=== PATIENT | female | born 1990 | race Caucasian/White ===

== ENCOUNTER → 2020-10-06 | Outpatient (CLI) | payer OTHER ==
[2020-10-06 14:33] LABS: FREE T4 1.25 ng/dl (0.76-1.46); THYROID STIM HORMONE (HS) 0.458 uIU/ml (0.358-4.75)
== END | disposition home or self-care (01) ==
LOC: LAB 12:24
PROVIDERS: ATTEND Internal Medicine
DX: E89.0 Postprocedural hypothyroidism (principal)

== ENCOUNTER → 2020-10-21 | Outpatient (CLI) | payer OTHER | END | disposition home or self-care (01) | LOC: US 01:15 | PROVIDERS: ATTEND Otolaryngology Plastic Surgery within the Head & Neck | DX: C73 Malignant neoplasm of thyroid gland (principal) ==

== ENCOUNTER → 2021-03-10 | Outpatient (CLI) | payer OTHER | END | disposition home or self-care (01) | LOC: LAB 03-05 00:13 | PROVIDERS: ATTEND Internal Medicine Endocrinology, Diabetes & Metabolism | DX: E89.0 Postprocedural hypothyroidism (principal); Z85.850 Personal history of malignant neoplasm of thyroid ==

== ENCOUNTER → 2021-05-28 | Outpatient (CLI) | payer OTHER ==
[2021-05-28 08:53] LABS: BASO % 0.5 % (0.0-1.0); EOS # 0.2 10*3/uL (0.0-0.4); EOS % 3.1 % (1.0-4.0); HEMATOCRIT 42.7 % (37.0-47.0); LYMPH # 1.8 10*3/uL (1.3-4.4); LYMPH % 31.3 % (27.0-41.0); MEAN CELL VOLUME 90.5 fl (81.0-99.0); MEAN CORPUSCULAR HGB 30.5 pg (27.0-31.0); MEAN CORPUSCULAR HGB CONC 33.7 g/dl (33.0-37.0); MONO # 0.5 10*3/uL (0.1-1.0); MONO % 7.7 % (3.0-9.0); NEUT # 3.3 10*3/uL (2.3-7.9); NEUT % 57.1 % (47.0-73.0); PLATELET COUNT AUTOMATED 239 10*3/uL (130-400); RED BLOOD COUNT 4.72 10*6/uL (4.10-5.10); RED CELL DISTRI WIDTH 11.8 % (0-14.5); WHITE BLOOD COUNT 5.9 10*3/uL (4.8-10.8)
[2021-05-28 09:21] LABS: ALBUMIN 3.8 gm/dl (3.1-4.5); ALKALINE PHOSPHATASE 53 U/L (45-117); BUN 11 mg/dl (7-24); CHLORIDE 106 mmol/L (98-107); CHOLESTEROL 146 mg/dL (<200); CREATININE 0.86 mg/dL (0.55-1.02); LDL CHOLESTEROL 80 mg/dL (9-159); POTASSIUM 4.2 mmol/L (3.5-5.1); SGOT/AST 23 IU/L (3-35); SGPT/ALT 19 U/L (12-78); SODIUM 140 mmol/L (136-145); TRIGLYCERIDES 56 mg/dl (<150)
[2021-05-28 09:28] LABS: THYROID STIM HORMONE (HS) 0.052 uIU/ml (0.358-4.75)
== END | disposition home or self-care (01) ==
LOC: LAB 08:35
PROVIDERS: ATTEND Family Medicine
DX: Z00.00 Encounter for general adult medical examination without abnormal findings (principal); E55.9 Vitamin D deficiency, unspecified; Z85.850 Personal history of malignant neoplasm of thyroid

== ENCOUNTER → 2021-06-04 | Outpatient (CLI) | payer OTHER ==
[2021-06-04 09:04] LABS: BUN 15 mg/dl (7-24); CHLORIDE 110 mmol/L (98-107); CREATININE 0.95 mg/dL (0.55-1.02); POTASSIUM 4.2 mmol/L (3.5-5.1); SODIUM 141 mmol/L (136-145)
== END | disposition home or self-care (01) ==
LOC: LAB 08:24
PROVIDERS: ATTEND Nurse Practitioner Family
DX: Z00.01 Encounter for general adult medical examination with abnormal findings (principal); B37.3 Candidiasis of vulva and vagina

== ENCOUNTER → 2021-07-16 | Outpatient (CLI) | payer OTHER ==
[2021-07-16 15:12] LABS: FREE T4 1.36 ng/dl (0.76-1.46)
[2021-07-16 15:17] LABS: THYROID STIM HORMONE (HS) 0.166 uIU/ml (0.358-4.75)
== END | disposition home or self-care (01) ==
LOC: LAB 14:37
PROVIDERS: ATTEND Internal Medicine Endocrinology, Diabetes & Metabolism
DX: E89.0 Postprocedural hypothyroidism (principal)

== ENCOUNTER → 2021-07-29 | Outpatient (CLI) | payer OTHER | END | disposition home or self-care (01) | LOC: CARD 00:30 | PROVIDERS: ATTEND Physician Assistant | DX: Z51.81 Encounter for therapeutic drug level monitoring (principal) ==

== ENCOUNTER → 2021-09-14 | Outpatient (CLI) | payer OTHER ==
[2021-09-14 13:31] LABS: FREE T4 1.47 ng/dl (0.76-1.46)
[2021-09-14 13:35] LABS: THYROID STIM HORMONE (HS) 0.055 uIU/ml (0.358-4.75)
== END | disposition home or self-care (01) ==
LOC: LAB 01:27
PROVIDERS: ATTEND Otolaryngology Plastic Surgery within the Head & Neck
DX: E55.9 Vitamin D deficiency, unspecified (principal)

== ENCOUNTER → 2021-10-06 | Outpatient (CLI) | payer OTHER | END | disposition home or self-care (01) | LOC: LAB 01:18 → US 16:00 → LAB 16:00 | PROVIDERS: ATTEND Otolaryngology Plastic Surgery within the Head & Neck | DX: C73 Malignant neoplasm of thyroid gland (principal) ==

== ENCOUNTER → 2021-10-18 | Outpatient (CLI) | payer OTHER | END | disposition home or self-care (01) | LOC: LAB 08:43 | PROVIDERS: ATTEND Family Medicine | DX: C73 Malignant neoplasm of thyroid gland (principal); Z85.850 Personal history of malignant neoplasm of thyroid ==

== ENCOUNTER → 2022-01-21 | Outpatient (CLI) | payer OTHER ==
[2022-01-21 12:47] LABS: FREE T4 1.19 ng/dl (0.76-1.46); THYROID STIM HORMONE (HS) 5.98 uIU/ml (0.358-4.75)
== END | disposition home or self-care (01) ==
LOC: LAB 01:46
PROVIDERS: ATTEND Internal Medicine Endocrinology, Diabetes & Metabolism
DX: Z13.21 Encounter for screening for nutritional disorder (principal); E89.0 Postprocedural hypothyroidism; Z85.850 Personal history of malignant neoplasm of thyroid